=== PATIENT | male | born 1965 | race Caucasian/White ===

== ENCOUNTER 2017-03-06 15:51 | Emergency (ER) | payer SELFPAY ==
[~2017-03-06] VITALS: Ht 195.6 cm; Wt 74.8 kg
[2017-03-06] MEDS ORDERED: PHEN100C4 PO (16:22)
[2017-03-06] MEDS ORDERED: CETI-102 PO (16:22)
[2017-03-06] MEDS ORDERED: [UNRECOGNIZED DRUG - CODE] PO (16:22)
[2017-03-06] MEDS ORDERED: IBUP-1482 PO (16:22)
[2017-03-06] MEDS ORDERED: LACO200T2 PO (16:22)
[2017-03-06] MEDS ORDERED: ATEN25TA PO (16:22)
[2017-03-06 17:44] LABS: CREATININE 0.8 mg/dL (0.6-1.3); POTASSIUM 3.8 mmol/L (3.5-5.1)
--- NOTE | 2017-03-06 18:06 | NUR ---
Pt evaluated by MD for s/p seizure. A/O x 4, vss, nad noted at this time. Awaiting for his ride. Patient discharged home in stable conditon. Written and verbal after care instructions given. Patient verbalizes understanding of instructions.
[2017-03-06 18:09] VITALS: BP 136/96
--- NOTE | 2017-03-06 18:56 | NUR ---
Pt has been picked up by his ride.
== END 2017-03-06 18:09 | disposition home or self-care (01) ==
LOC: ER 15:53
DX: G40.909 Epilepsy, unspecified, not intractable, without status epilepticus (principal); R89.2 Abnormal level of other drugs, medicaments and biological substances in specimens from other organs, systems and tissues; F12.10 Cannabis abuse, uncomplicated; Z88.0 Allergy status to penicillin
CPT/HCPCS: 36415; A4663